=== PATIENT | male | born 1935 | race Caucasian/White ===

== ENCOUNTER 2021-01-19 06:00 | Outpatient (RCR) | payer OTHER, SELFPAY | END 2021-01-20 23:59 | disposition home or self-care (01) | LOC: AST 06:00 | PROVIDERS: PCP Nurse Practitioner; Referring Provider Family Medicine; Visit Provider Family Medicine | DX: F13.19 Sedative, hypnotic or anxiolytic abuse with unspecified sedative, hypnotic or anxiolytic-induced disorder (principal) | CPT/HCPCS: 92610 ==

== ENCOUNTER 2021-01-25 08:53 | Outpatient (CLI) | payer OTHER, SELFPAY ==
--- NOTE | 2021-01-25 | FL_ITS ---
WS: [id number] FL barium swallow modifd 81162 REASON FOR EXAM: Other dysphagia FLUOROSCOPY TIME: 2.9 minutes FINDINGS: The swallowing of barium of varying consistencies was evaluated and recorded fluoroscopically. A deta iled report of the analysis of the swallowing will be rendered by the speech therapy department. There appears to be abnormal motility and possible relative functional or intrinsic obstruction of th e distal esophagus and a formal esophagram is recommended for further evaluation. FL/FL barium swallow modifd 93178 IMPRESSION: Modified barium swallow as above. Recommendation esophagram as above.
== END 2021-01-25 08:54 | disposition home or self-care (01) ==
LOC: RAD 08:57
PROVIDERS: PCP Nurse Practitioner; Visit Provider Family Medicine
DX: R13.19 Other dysphagia (principal)
CPT/HCPCS: 74230; 92611

== ENCOUNTER 2021-02-08 09:00 | Emergency (ER) | payer OTHER, SELFPAY ==
[2021-02-08 10:04] VITALS: BP 141/85; PULSE 103; RESP 20; TEMP 36.9; O2SAT 97; BMI 24.0
--- NOTE | 2021-02-08 11:02 | CT_ITS ---
WS: [id number] CT ABDOMEN PELVIS TECHNIQUE: Contrast-enhanced CT of the abdomen and pelvis with coronal and sagittal reformatted image s. CLINICAL INFORMATION: abd pain COMPARISON: None. DLP: 1033.[address] scans at [facility] use at least one of these dose optimization techniques: automated e xposure control; mA and/or kV adjustment per patient size (includes targeted exams where dose is matc hed to clinical indication); or iterative reconstruction. FINDINGS: Marked diffuse soft tissue thickening involving the distal thoracic esophagus extending to the GE junction suspicious for neoplasm. Associated luminal narrowing. Retrocrural and upper abdomina l lymphadenopathy. Additional marked bulky periaortic and retroperitoneal lymphadenopathy as well as aortocaval lymphadenopathy. Slight atelectasis in the lung bases. Diffuse fatty infiltration of the liver. Normal portal vein and splenic vein. Normal gallbladder. Normal spleen. Mild fatty atrophy of the pancreas. Vascular calcif ication. Enlarged calcified prostate measuring 4.5 CCM. Sigmoid diverticulosis. No evidence of high-grade smal l or large bowel obstruction. Normal appendix. Adrenal glands are normal. No hydronephrosis. Bilatera l renal cysts. Some lesions are too small to characterize. Small bladder cystocele. Moderate spondylitic changes lumbar spine. CT/CT abdomen pelvis w con* [id number] IMPRESSION: 1. Diffuse marked soft tissue thickening involving the distal esophagus suspic ious for neoplasm with luminal narrowing. Recommend Further evaluation with end oscopy. This extends to involve the GE junction. 2. Marked retrocrural, periesophageal, and upper abdominal lymphadenopathy. In addition circumferential bulky retroperitoneal,aortocaval and periaortic lymph adenopathy suspicious for metastatic disease versus lymphoma. 3. Diffuse fatty infiltration of the liver. 4. Bilateral renal cysts. 5. Enlarged calcified prostate. Notified Arun Mock DO at 02/08/2021 1:16 PM.
--- NOTE | 2021-02-08 11:03 | ED_ITS ---
HPI - General Adult General: Chief complaint: General Medical Stated complaint: LOWER ABD PAIN:UNABLE TO EAT SOLID FOOD X 4 MO Time Seen by Provider: 02/08/21 10:56 History of Present Illness: HPI narrative: 85-year-old male presents emergency room complaining of left lower quadrant abdominal pain for the last 6 months a decreased appetite. He denies any nausea vomiting or diarrhea. Denies any medic easy melena hematemesis coffee-ground emesis. Is not had any fever sweats or chills.[facility] Sounds like he had an upper GI but we do not have access to those results. [facility] the [facility]. Nothing has significantly changed notes been going on since June of this year. He denies any fever sweats or chills is not had any vomiting at all with this. No previous abdominal surgeries. Onset (ago): month(s) (6) Location: abdomen Severity: mild Quality: aching Pain Consistency: intermittent Relieving factors: other (Fasting) Exacerbating factors: eating Associated symptoms: Reports decreased appetite, malaise, nausea and weakness; Deny chest pain, confusion, cough, diaphoresis, dyspnea, fevers/chills, he adache(s), rash, palpitations, seizures, short of breath, syncope or vomiting Treatments prior to arrival: none Review of Systems Const: Reports: change in appetite, change in weight and malaise; Denies: diaphoresis ENMT: Denies: throat pain, ear or mastoid pain, nasal discharge or nasal congestion Card: Denies: chest pain, palpitations or syncope Resp: Denies: dyspnea GI: Reports: nausea, dysphagia, heartburn, early satiety and GI cramping; Denies: vomiting, hematemesis, coffee ground emesis, hematochezia or melena : Denies: flank pain, dysuria, urinary frequency or urinary urgency Skin/Breast: Denies: rash Neuro: Denies: headache(s) or confusion PFS ED PFSH: Medical History (Updated 02/08/21 @ 13:45 by Arun Mock DO) Blind left eye since childhood Surgical History (Updated 01/12/21 @ 09:03 by PACO Garrett) No history of previous surgery Family History Other Hyperlipidemia Hypertension Denies family history of Diabetes Dementia Anesthesia complication Bleeding disorder Cancer Stroke Social History Smoking and tobacco status: former smoker Second hand smoke exposure: No Smoking risk assessment/counseling performed?: No Alcohol intake: never Desire information about alcohol rehabilitation?: No Counseling given: No Desire information about substance/drug rehabilitation?: No Counseling given: No Adopted: No Caregiver/support person: No Lives independently: Yes Household members: friend(s) Housing: House Marital status: Single service: Yes branch: [employer] Current occupational status: retired Current occupational exposures/hazards: No Pets and animals: Yes Pets & animals: dog(s) History of recent travel: No Current gender identity: Male Physical Exam Const: COMMON NORMALS: no acute distress GENERAL APPEARANCE: cooperative and comfortable ORIENTATION/CONSCIOUSNESS: Yes awake, Yes oriented to person, Yes oriented to place and Yes oriented to time HENMT: COMMON NORMALS: normocephalic, atraumatic and hearing grossly normal bilaterally HEAD & SCALP: normocephalic and atraumatic Neck/C-Spine: COMMON NORMALS: no JVD Resp: COMMON NORMALS: normal respiratory effort, No retractions, No use of accessory muscles and clear to auscultation bilaterally AUSCULTATION: clear to auscultation bilaterally Cardio: COMMON NORMALS: no JVD, regular rate, regular rhythm and No murmurs present (Cardio) RATE: regular rate RHYTHM: regular rhythm GI: COMMON NORMALS: Soft to palpation and No hepatosplenomegaly present AUSCULTATION: Yes normoactive bowel sounds PALPATION: Yes Soft to palpation, No Tenderness to palpation present (GI), No Guarding due to palpation present (GI) and Yes No hepatosplenomegaly present Extremity: COMMON NORMALS: normal to inspection, capillary refill normal, no clubbing, cyanosis or edema, no calf tenderness and no pedal edema Neuro: SENSORIUM/ORIENTATION: Yes oriented to person, Yes oriented to place and Yes oriented to time Skin: COMMON NORMALS: no rashes or lesions noted GENERAL SKIN EXAM: no rashes or lesions noted Course Vital Signs: Vital signs: Vital Signs Temperature 98.1 F 02/08/21 11:52 Pulse Rate 81 02/08/21 14:09 Respiratory Rate 19 H 02/08/21 14:09 Blood Pressure 141/78 02/08/21 14:09 Pulse Oximetry 96 02/08/21 14:09 MDM - General Adult MDM Narrative: Medical decision making narrative: Labs and imaging reviewed, very concerning for esophageal cancer and possibly lymphoma. Discussed with the patient and his family the findings are concerning for possible cancer but until there is a biopsy done we cannot be certain. Discussed with the radiologist as well. He recommends that the easiest route will likely be a EGD he suspects based on CT findings this could be biopsied at the distal esophagus. We will make arrangements for him to see Dr. Chacon. Return to the emergency room if he has further problems. Patient given Zofran and Protonix. Also start a low-dose dexamethasone and attempt to increase his appetite decrease swelling distal esop hageal junction. Advised him if it is irritating to just stop it. Lab Data: Labs: Lab Results 02/08/21 02/08/21 02/08/21 11:45 11:45 11:45 WBC 14.6 10^3/uL H 10 ^3/uL (4.0-10.0) RBC 4.74 10^6/uL 10^6 /uL (4.1-5.3) Hgb 14.7 g/dL g/dL (11.7-16.6) Hct 42.5 % % (42.0-52.0) MCV 89.7 fl fl (80-94) MCH 31.0 pg pg (28.0-34.0) MCHC 34.6 g/dL g/dL (30.0-36.0) RDW 12.7 % % (12.1-15.1) Plt Count 341 10^3/cmm 10^3 /cmm (130-400) MPV 9.5 fL fL (7.4-10.4) Neut % (Auto) 81.5 % % Lymph % (Auto) 8.4 % % [place] % (Auto) 7.3 % % Eos % (Auto) 1.9 % % Baso % (Auto) 0.6 % % Neut # (Auto) 11.89 10^3/uL H 1 0^3/uL (1.8-7.7) Lymph # (Auto) 1.2 10^3/uL 10^3/ uL (0.8-4.8) [place] # (Auto) 1.1 10^3/uL H 10^ 3/uL (0.2-0.9) Eos # (Auto) 0.3 10^3/uL 10^3/ uL (0.0-0.8) Baso # (Auto) 0.1 10^3/uL 10^3/ uL (0.0-0.1) Nucleated RBC % (a uto) 0 % % Nucleated RBCs # 0.0 /100WBC /100W BC Sodium 135 mmol/L L mmol /L (136-145) Potassium 4.3 mmol/L mmol/L (3.5-5.1) Chloride 96 mmol/L L mmol/ L (98-107) Carbon Dioxide 27 mmol/L mmol/L (22-29) Anion Gap 16.3 (5-19) BUN 16 mg/dL mg/dL (8-23) Creatinine 0.7 mg/dL mg/dL (0.7-1.2) GFR Calculation Not Reportable Glucose 94 mg/dL mg/dL (65-115) Calculated Osmolal ity 281 mOsm/kg L mOs m/kg (285-295) Calcium 9.3 mg/dL mg/dL (8.5-10.5) Total Bilirubin 0.6 mg/dL mg/dL (0.15-1.2) AST 17 U/L U/L (0-40) ALT 10 U/L U/L (0-41) Alkaline Phosphata se 101 IU/L IU/L (40-130) Total Protein 7.5 g/dL g/dL (6.6-8.7) Albumin 3.6 g/dL g/dL (3.5-5.2) Globulin 3.9 g/dL g/dL (1.3-4.6) Urine Color Yellow (Yellow) Urine Appearance Cloudy (CLEAR) Urine pH 5 (5-7) Ur Specific Gravit y 1.020 (1.005-1.030) Urine Protein Trace (Negative) Urine Glucose (UA) Norm (Normal) Urine Ketones 1+ H (Negative) Urine Blood Neg (Negative) Urine Nitrate Negative (Negative) Urine Bilirubin Neg (Negative) Urine Urobilinogen 1 mg/dL H mg/dL (Negative) Ur Leukocyte Diane ase 2+ H (Negative) Urine RBC 0-4 /hpf H /hpf (0-2) Urine WBC 10-15 /hpf H /hpf (0-5) Ur Squamous Epith Cells 5-10 /hpf H /hpf (0-5) Amorphous Sediment 1+ /hpf /hpf Urine Bacteria 2+ /hpf H /hpf (NONE) Urine Mucus 3+ /hpf /hpf Discharge Plan Discharge Patient Disposition: Home Clinical Impression: Esophageal mass Condition: Stable Prescriptions: New Zofran 4 mg tablet 4 mg PO Q6H PRN (Reason: nausea and vomiting) Qty: 15 RF: 0 dexamethasone 6 mg tablet 2 mg PO DAILY Qty: 15 RF: 0 Protonix 40 mg tablet,delayed release (DR/EC) 40 mg PO DAILY 56 Days RF: 0 No Action carboxymethylcellulose sodium [Lubricant Eye Drops] 0.5 % drops 2 drp ophthalmic (eye) BID Qty: 15 RF: 0 chlorhexidine gluconate [Peridex] 0.12 % mouthwash 15 ml buccal BID Qty: 473 RF: 2 Discharge Orders: Discharge ED (Routine); Ordered 02/08/21 Ordered By: Arun Mock Referrals: [facility], [facility] [Nurse Practitioner] - Discharge Diet: Soft Mechanical Discharge Activity: Resume usual activity Patient Instructions: Soft Diet (ED), Opioid Safety Activity Restrictions/Additional Instructions: transportation dispatch manager will make arrangements for you to follow-up with general surgery for an EGD to get a biopsy of the area of concern. Return if you have further problems. Coding Level of Care Code ED Critical Power Install Technician for Kelli Wilson
[2021-02-08 11:52] VITALS: BP 145/88; PULSE 83; RESP 19; TEMP 36.7
[2021-02-08 12:14] LABS: Basophils # 0.1 10^3/uL (0.0-0.1); Basophils % 0.6 %; Eosinophils # 0.3 10^3/uL (0.0-0.8); Eosinophils % 1.9 %; Hematocrit 42.5 % (42.0-52.0); Hemoglobin 14.7 g/dL (11.7-16.6); Lymphocytes # 1.2 10^3/uL (0.8-4.8); Lymphocytes % 8.4 %; Mean Corpuscular HGB Conc 34.6 g/dL (30.0-36.0); Mean Corpuscular Volume 89.7 fl (80-94); Mean Platelet Volume 9.5 fL (7.4-10.4); Monocytes # 1.1 10^3/uL (0.2-0.9); Monocytes % 7.3 %; Neutrophils # 11.89 10^3/uL (1.8-7.7); Neutrophils % 81.5 %; Nucleated Red Blood Cells % 0 %; Platelet Count 341 10^3/cmm (130-400); Red Blood Count 4.74 10^6/uL (4.1-5.3); Red Cell Distribution Width 12.7 % (12.1-15.1); White Blood Count 14.6 10^3/uL (4.0-10.0)
[2021-02-08 12:22] LABS: Alanine Aminotransferase 10 U/L (0-41); Albumin Level 3.6 g/dL (3.5-5.2); Alkaline Phosphatase 101 IU/L (40-130); Anion Gap 16.3 (5-19); Aspartate Amino Transferase 17 U/L (0-40); Blood Urea Nitrogen 16 mg/dL (8-23); Calcium 9.3 mg/dL (8.5-10.5); Carbon Dioxide 27 mmol/L (22-29); Chloride 96 mmol/L (98-107); Globulin 3.9 g/dL (1.3-4.6); Glucose 94 mg/dL (65-115); Osmolality Calculated 281 mOsm/kg (285-295); Potassium 4.3 mmol/L (3.5-5.1); Sodium 135 mmol/L (136-145); Total Bilirubin 0.6 mg/dL (0.15-1.2); Total Protein 7.5 g/dL (6.6-8.7)
[2021-02-08 12:30] LABS: Urine Appearance Cloudy (CLEAR); Urine Color Yellow (Yellow); pH Urine 5 (5-7)
[2021-02-08 12:31] LABS: Add Urine Microscopic? YES; Bilirubin Urine Neg (Negative); Blood Urine Neg (Negative); Glucose Urine UA Norm (Normal); Ketones Urine 1+ (Negative); Leukocyte Esterase Urine 2+ (Negative); Nitrate Urine Negative (Negative); Protein Urine Trace (Negative); RBC Urine 0-4 /hpf (0-2); Urobilinogen Urine 1 mg/dL (Negative)
[2021-02-08 12:32] LABS: Add Urine Culture? Yes; Amorphous Sediment Urine 1+ /hpf; Bacteria Urine 2+ /hpf; Mucus Urine 3+ /hpf
[2021-02-08] MEDS: iohexol 300 mg/mL 100 mL Btl IV (12:33)
[2021-02-08 14:09] VITALS: BP 141/78; PULSE 81; RESP 19; O2SAT 96
--- NOTE | 2021-02-08 14:10 | PC.NURSE ---
upon dc pt iv is removed with catheter intact. pt denies any further needs at this time.
--- NOTE | 2021-02-09 15:49 | DCPLANNER ---
manager of it had message to schedule a follow up appointment for patient with general surgery. manager of it emailed patients information to Fe Gray and Julianne at [facility] General Surgery / ENT clinic. Patients information will be printed and reviewed. Clinic will call patient with appointment information. Patient has [facility] insurance, manager of case management emailed patients information over a secured email to [facility] with [facility], so that the authorization process could be started.
--- NOTE | 2021-03-04 08:03 | DCPLANNER ---
Patient had a follow up appointment scheduled for 02.17.21 with general surgery - patient did attend appointment.
== END 2021-02-08 14:13 | disposition home or self-care (01) ==
PROVIDERS: Emergency Provider Family Medicine; PCP Family Medicine
DX: K22.9 Disease of esophagus, unspecified (principal); Z87.891 Personal history of nicotine dependence
CPT/HCPCS: 74177; 80053; 81001; 85025; 87086; 99283; Q9967

== ENCOUNTER 2021-02-23 08:18 | Day surgery (SDC) | payer OTHER, SELFPAY ==
[2021-02-18 14:47] VITALS: BMI 23.1
--- NOTE | 2021-02-23 09:05 | P.ANESASSM_ITS ---
Pre-Anesthetic Assessment Pre-Anesthetic Assessment: Height/Weight: Height 1.63 m Weight 61.235 kg Preop Diagnosis: Dysphagia Proposed Procedure: Operation Date: 02/23/21 10:00 Proposed Procedures p EGD 62038 R13.10(Not Applicable) - Carlito Ambrosio MD Familial anesthetic complications: No hx of anesthesia before Last intake: > 8 hrs Social: Social History: No alcohol and No tobacco Exam: Pre-Anes Outpt Exam: alert, oriented x 3, clear to auscultation bilaterally and regular rate & rhythm Airway: MP: 2 Dentition: Other (missing) GI: Comments: fatigue - only able to take ensure since october, 40 lbs lost dysphagia Anesthetic Plan: ASA status: 3 Anesthesia: MAC Risk of > 500 ml blood loss (7ml/kg in children): No PFSH Anesthesia PFSH: Medical History Blind left eye since childhood Surgical History No history of previous surgery Family History Other Hyperlipidemia Hypertension Denies family history of Diabetes Dementia Anesthesia complication Bleeding disorder Cancer Stroke Social History Smoking and tobacco status: never smoked Second hand smoke exposure: No Smoking risk assessment/counseling performed?: No Alcohol intake: never Desire information about alcohol rehabilitation?: No Counseling given: No Desire information about substance/drug rehabilitation?: No Counseling given: No Adopted: No Caregiver/support person: No Lives independently: Yes Household members: friend(s) Housing: House Marital status: Single service: Yes branch: [employer] Current occupational status: retired Current occupational exposures/hazards: No Pets and animals: Yes Pets & animals: dog(s) History of recent travel: No Current gender identity: Male Data Anesthesia Cardiac Studies: No Data to Display
--- NOTE | 2021-02-23 09:34 | W.PM.OPSUD ---
Surgery/Procedure H&P Update DATE OF PROCEDURE: February 23, 2021 DATE H&P PERFORMED: 02/17/21 H&P UPDATE INFORMATION: I have reviewed H&P completed within last 30 days, I have examined patient prior to procedure and No changes to prior documentation PREOP DIAGNOSIS: Dysphagia PRIMARY INDICATION FOR PROCEDURE: The same PLANNED PROCEDURE: Operation Date: 02/23/21 10:00 Proposed Procedures p EGD 51121 R13.10(Not Applicable) - Carlito Ambrosio MD
[2021-02-23 09:40] VITALS: BP 120/80; PULSE 96; RESP 18; TEMP 36.4; O2SAT 97
[2021-02-23] MEDS: sodium chloride 0.9% 1,000 ML 30 ML IV (09:54)
[2021-02-23 10:29] VITALS: BP 99/60; PULSE 85; RESP 16; TEMP 36.1; O2SAT 96
[2021-02-23 10:39] VITALS: BP 113/65; PULSE 80; RESP 18; O2SAT 95
--- NOTE | 2021-02-23 14:31 | ANE.PACU2 ---
Inpatient post-anesthesia follow up: Airway intact: Yes Vital signs: Temperature 97.0 F Pulse Rate 80 Respiratory Rate 18 Blood Pressure 113/65 Pulse Oximetry 95 Oxygen Delivery Me thod Room Air Oxygen Flow Rate Fraction of Inspir ed Oxygen Hydration adequate: Yes Nausea and vomiting: No Pain level: 2 Mental status: Baseline
[2021-02-28 09:13] LABS: HER2 FISH/IHC (Non-Gastric) See Report
[2021-03-07 07:42] LABS: PD-L1 (Clone 22C3) by IHC BBPL See Report
== END 2021-02-23 10:59 | disposition home or self-care (01) ==
PROVIDERS: PCP Family Medicine; Visit Provider Surgery
PROC: 0DJ08ZZ Inspection of Upper Intestinal Tract, Via Natural or Artificial Opening Endoscopic (ICD-10-PCS; CPT 43235; principal; 2021-02-23 10:00)
DX: R13.10 Dysphagia, unspecified (principal); C15.5 Malignant neoplasm of lower third of esophagus; K22.89 Other specified disease of esophagus; R59.0 Localized enlarged lymph nodes; K76.0 Fatty (change of) liver, not elsewhere classified; N28.1 Cyst of kidney, acquired; N40.0 Benign prostatic hyperplasia without lower urinary tract symptoms; I10 Essential (primary) hypertension; E78.5 Hyperlipidemia, unspecified
CPT/HCPCS: 43239; 88104; 88305; 88342; 96360; J2704; J7030

== ENCOUNTER 2021-03-14 08:13 | Outpatient (CLI) | payer OTHER, SELFPAY ==
--- NOTE | 2021-03-14 10:03 | N.ONRAD NP_ITS ---
Radiation Oncology Consultation Patient Name: Keegan Funk Date of : 1935 Date of Service: 03/14/2021 Attending Physician: Amado Armas M.D. Keegan Funk was seen in consultation this morning at the request of Carlito Stein M.D. for consideration of esophageal radiotherapy for the management of a recently diagnosed distal esophageal carcinoma. He initially was evaluated at the [facility] Emergency Department in January for dyspepsia and dysphagia associated with weight loss. A thoracoabdominopelvic CT scan described diffuse soft tissue thickening of the distal esophagus extending to the gastroesophageal junction and lymphadenopathy (aortocaval, periaortic, upper abdominal, retrocrural, and retroperitoneal). An esophagoscopy was performed by Carlito Stein M.D. on February 23, 2021. A partially obstructing mass was present 30 cm from the central incisors. A biopsy of the mass Keegan Funk was seen in consultation this morning at the request of Carlito Stein M.D. for consideration of esophageal radiotherapy for the management of a recently diagnosed distal esophageal carcinoma. He initially was evaluated at the [facility] Emergency Department in January for dyspepsia and dysphagia associated with weight loss. A thoracoabdominopelvic CT scan described diffuse soft tissue thickening of the distal esophagus extending to the gastroesophageal junction and lymphadenopathy (aortocaval, periaortic, upper abdominal, retrocrural, and retroperitoneal). An esophagoscopy was performed by Carlito Stein M.D. on February 23, 2021. A partially obstructing mass was present 30 cm from the central incisors. 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 A PET CT has been scheduled. The patient was evaluated concerning neoadjuvant chemoradiotherapy. 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 The recommendations are based upon the CROSS study which compared surgery alone to preoperative chemoradiotherapy significantly improved overall survival (5-year 47% versus 34%) and disease-free survival compared to surgery alone in patients with resectable esophageal or esophago-gastric junction cancers. Long-term results of this trial confirmed significant improvement in median overall survival (43 months versus 27 months for patients with adenocarcinoma). The patient will be evaluated for esophageal stent placement prior to definitive management. I would recommend a 5-week course of radiotherapy assuming the PET scan does not confirm metastatic disease. Prior to beginning treatment, a computed tomographic radiotherapy planning scan with contrast in the treatment position will be acquired and co-registered to the patient's PET CT scan to identify the gross tumor volume. The potential toxicities of radiation treatment have been reviewed. The patient has verbalized understanding and would like to proceed as advised. The patient???s medical treatment plan was discussed with Carlito Stein M.D. Signed by: Dr. Amado Armas 03/14/2021 10:01:55 AM
== END 2021-03-14 08:14 | disposition home or self-care (01) ==
PROVIDERS: PCP Family Medicine; Visit Provider Radiology Radiation Oncology
DX: C15.5 Malignant neoplasm of lower third of esophagus (principal); R10.13 Epigastric pain; R13.10 Dysphagia, unspecified; R63.4 Abnormal weight loss; R59.0 Localized enlarged lymph nodes; Z79.899 Other long term (current) drug therapy
CPT/HCPCS: 99205

== ENCOUNTER 2021-03-14 10:01 | Emergency (ER) | payer OTHER, SELFPAY ==
[2021-03-14 10:09] VITALS: BP 93/61; PULSE 96; RESP 15; TEMP 36.4; O2SAT 97; BMI 21.2
--- NOTE | 2021-03-14 10:27 | W.ED.ABDPA2 ---
HPI - Abdominal Pain General: Chief Complaint: Abdominal Pain Stated Complaint: Pain, unable to eat, sent per doctor History of Present Illness: MD elicited complaint: abdominal pain PFSH ED PFSH: Medical History Blind left eye since childhood Surgical History No history of previous surgery Family History Other Hyperlipidemia Hypertension Denies family history of Diabetes Dementia Anesthesia complication Bleeding disorder Cancer Stroke Social History Second hand smoke exposure: No Smoking risk assessment/counseling performed?: No Alcohol intake: never Desire information about alcohol rehabilitation?: No Counseling given: No Desire information about substance/drug rehabilitation?: No Counseling given: No Adopted: No Caregiver/support person: No Lives independently: Yes Household members: friend(s) Housing: House Marital status: Single service: Yes branch: [employer] Current occupational status: retired Current occupational exposures/hazards: No Pets and animals: Yes Pets & animals: dog(s) History of recent travel: No Current gender identity: Male Course Vital Signs: Vital signs: Vital Signs Temperature 97.6 F 03/14/21 10:09 Pulse Rate 96 03/14/21 10:09 Respiratory Rate 15 03/14/21 10:09 Blood Pressure 93/61 03/14/21 10:09 Pulse Oximetry 97 03/14/21 10:09 Discharge Plan Discharge Prescriptions: No Action hydrocodone-acetaminophen 5-325 mg tablet 1 tab PO Q6H PRN (Reason: pain) 7 Days Qty: 28 RF: 0 acetaminophen 500 mg Tablet 500 mg PO Q6H PRN (Reason: Pain) RF: 0 Coding Level of Care Code ED Taker Off Braker Machine for Kelli Wilson
[2021-03-14 11:24] VITALS: BP 106/69; PULSE 89; RESP 19; TEMP 36.6; O2SAT 97
[2021-03-14] MEDS: sodium chloride 0.9% 500 ML IV (11:49)
[2021-03-14 12:08] LABS: Basophils % 0.2 %; Eosinophils # 0.1 10^3/uL (0.0-0.8); Eosinophils % 0.4 %; Hematocrit 39.1 % (42.0-52.0); Hemoglobin 12.7 g/dL (11.7-16.6); Lymphocytes # 0.7 10^3/uL (0.8-4.8); Lymphocytes % 4.2 %; Mean Corpuscular HGB Conc 32.5 g/dL (30.0-36.0); Mean Corpuscular Hemoglobin 29.8 pg (28.0-34.0); Mean Corpuscular Volume 91.8 fl (80-94); Mean Platelet Volume 10.2 fL (7.4-10.4); Monocytes # 0.7 10^3/uL (0.2-0.9); Monocytes % 4.4 %; Neutrophils # 14.99 10^3/uL (1.8-7.7); Neutrophils % 90.4 %; Nucleated Red Blood Cells % 0 %; Platelet Count 246 10^3/cmm (130-400); Red Blood Count 4.26 10^6/uL (4.1-5.3); Red Cell Distribution Width 14.9 % (12.1-15.1); White Blood Count 16.6 10^3/uL (4.0-10.0)
[2021-03-14 12:24] VITALS: BP 117/72; PULSE 81; RESP 17; O2SAT 99
--- NOTE | 2021-03-14 12:28 | CT_ITS ---
WS: [id number] CT ABDOMEN AND PELVIS WITH CONTRAST HISTORY: Evaluate for stomach cancer TECHNIQUE: Imaging performed of the abdomen and pelvis with IV contrast. Single phase imaging of the abdomen. Coronal and sagittal reformats are submitted. All CT scans at [facility] use at [address] one of these dose optimization techniques: automated exposure control; mA and/or kV adjustment per patient size (includes targeted exams where dose is matched to clinical indication); or iterative re construction. IV CONTRAST: Visipaque 320; 95 mL IV. Oral contrast: No DLP: 832.71 mGy.cm COMPARISON: 02/08/2021 Lower thorax: Tiny nodular densities at the lung bases are new. Early metastatic sites are not exclud ed. There is a small layering LEFT pleural effusion. Heart is normal size. Small pericardial effusion . There is marked diffuse esophageal wall thickening. This was previously described on 02/08/2021 wit h progression. There is significant narrowing of the lumen wall measuring up to 2 cm of the esophagus . This abnormal soft tissue mass extends into the GE junction and fundus of the stomach. Liver/biliary system: Normal size with no intrahepatic dilatation. Gallbladder: Mildly hydropic gallbladder. No adjacent inflammation or wall thickening. Pancreas: Marked atrophy of the pancreas. Significant progression of soft tissue surrounding the panc reas with encasement by confluent soft tissue low attenuation masses consistent with adenopathy. Inse parable from the pancreas with significant progression since the prior study. There probably is is al so invasion into the pancreas. Spleen: Normal size spleen. No mass or infarct. Adrenal glands: Normal RIGHT adrenal gland. Abnormal LEFT adrenal gland. Confluent soft tissue metast atic nodules which are inseparable from the pancreas extending to also involve the adrenal gland. Thi s may be encasement from external metastatic sites or metastatic to the adrenal gland. Right kidney: Small cyst. No obstruction. Left kidney: Small cysts with no obstruction. Aorta: Moderate atherosclerosis aorta. Lymphadenopathy: Extensive significant progression of lymphadenopathy and/or metastatic deposits thro ughout the abdomen and pelvis since the prior examination. Distal paraesophageal and retrocrural lymp hadenopathy. There is extensive adenopathy throughout the mesentery and extending into the retroperit oneum at multiple levels. Circumferential adenopathy encasing the aorta at the level of the renal art eries. Aortocaval, periaortic and retrocaval lymph nodes and retrocrural lymph nodes. Numerous mesent judson lymph nodes. Free fluid: None. GI tract: No small bowel obstruction. Mild increased amount of air fecal retention throughout the col on. There are numerous diverticula in the descending colon with no obstruction. Abdominal wall: Unremarkable abdominal wall. No hernia. Pelvis: Well-distended urinary bladder. Small calcifications within the dependent urinary bladder may be from a recently passed ureteral calcification. New since 02/08/2021. Extensive calcifications wit hin the prostate gland. Patent inguinal canals. Bones: No osteoblastic or osteolytic disease. CT/CT abdomen pelvis w con* [id number] IMPRESSION: 1. Moderate progression of soft tissue thickening surrounding the distal esoph guadalupe extending into the fundus of the stomach highly suspicious for neoplastic disease. 2. Significant progression of adenopathy and/or mesenteric deposits throughout the abdomen and retroperitoneal. Progression of retrocrural, mesenteric and re troperitoneal adenopathy. 3. Adenopathy has significantly progressed and extends into the pancreas and t he LEFT adrenal gland. 4. Small layering LEFT pleural effusion and possible very small metastatic nod ules at the lung bases. 5. New calcification in the dependent urinary bladder may be from a recently p assed ureteral calcification.
[2021-03-14 12:41] VITALS: RESP 20; O2SAT 97
[2021-03-14] MEDS: morphine 4 mg/mL SDV 1 mL 2 MG IVP (12:41)
--- NOTE | 2021-03-14 12:43 | ED_ITS ---
HPI - General Adult General: Chief complaint: Abdominal Pain Stated complaint: Pain, unable to eat, sent per doctor Time Seen by Provider: 03/14/21 11:04 History of Present Illness: HPI narrative: Patient is an 85-year-old male with history of esophageal cancer presenting to the emergency room with concerns for weight loss and inability tolerate p.o. Patient was deemed not a candidate for GJ tube placement by Dr. Ambrosio given the fact that patient would not be able to undergo EGD evaluation. Patient denies any nausea or vomiting, has not been able to tolerate p.o. Patient was referred her by Dr. Ambrosio for esophageal stent placement for palliative treatments. She has had 25 pounds of weight loss in the last month. Denies any other complaints when diarrhea, melena or/hematochezia, urinary complaints, chest pain, shortness breath, palpitation, fever or chills. Onset: chronic Duration:ongoing Location: home Severity:moderate/severe Review of Systems Narrative: Constitutional: No fever, no chills. +thin, cachetic HEENT: No vision changes CV: No chest pain, no palpitations PULM: no cough, no dyspnea. GI: No abdominal pain, no N/V/D. +weight loss : No dysuria MSKEL: No muscle pain SKIN: No new rashes, no lesions. NEURO: No headache, no focal weakness. HEME: No visible bruises PSYCH: Normal mood PFSH ED PFSH: Medical History Blind left eye since childhood Surgical History No history of previous surgery Family History Other Hyperlipidemia Hypertension Denies family history of Diabetes Dementia Anesthesia complication Bleeding disorder Cancer Stroke Social History Second hand smoke exposure: No Smoking risk assessment/counseling performed?: No Alcohol intake: never Desire information about alcohol rehabilitation?: No Counseling given: No Desire information about substance/drug rehabilitation?: No Counseling given: No Adopted: No Caregiver/support person: No Lives independently: Yes Household members: friend(s) Housing: House Marital status: Single service: Yes branch: [employer] Current occupational status: retired Current occupational exposures/hazards: No Pets and animals: Yes Pets & animals: dog(s) History of recent travel: No Current gender identity: Male Physical Exam Narrative: EXAM NARRATIVE: Head: Atraumatic Eyes: PERRL, conjunctiva without injection ENT: Mucous membrane moist NECK: Supple, ROM intact LUNGS: LCTAB, no crackles/rhonchi CV: RRR ABDOMEN: Soft, nofocal TTP. NO guarding rebound, guarding, rigidity. No CVA tenderness to percussion. Neg Stovall/Neg McBurney's point tenderness, no suprabupic tenderness to palpation. EXTREMITY: Normal ROM SKIN: No rash or erythema NEURO: Awake and alert, no focal motor deficits PSYCH: Normal mood and affect Course Vital Signs: Vital signs: Vital Signs Temperature 97.9 F 03/14/21 11:24 Pulse Rate 80 03/14/21 14:06 Respiratory Rate 16 03/14/21 14:06 Blood Pressure 107/63 03/14/21 14:06 Pulse Oximetry 96 03/14/21 14:06 MDM - General Adult MDM Narrative: Medical decision making narrative: Patient is a 85-year-old male with a history of extensive esophageal carcinoma presenting to the emergency room at the request of patient's surgeon Dr. Brown for esophageal stent placement. Patient is not deemed not a candidate for GJ tube given extensive cancer history and inability to pass EGD during prior evaluation. On exam, patient is thin cachectic looking male. Rest of exam within normal limit. He has a white count of 16.6, this is consistent with his baseline of 14.8 from prior evaluation on . At the present time, given need for esophageal stent, have discussed case with Dr. Ambrosio who recommended outpatient transfer as we do not provide this procedure in our facility. Case was discussed with Dr. Bills from [facility] general surgery who reports that there is no bed and patient is better suited for outpatient evaluation for stent placement next week. I discussed this extensively with patient and instructed patient to follow-up with his nozzle operator in the next 24 to 48 hours for reevaluation to evaluate for nutritional improvement while waiting for outpatient procedure by Dr. Bills. Disposition: Discharge. Patient counseled regarding diagnostic impression, treatment plan. Patient given ED strict return precautions to return for continuation, worsening, or development of new symptoms. Instructed to f/u w/ PCP, general surgeon, and oncologist regarding symptoms today. Patient verbalized understanding. Lab Data: Labs: Lab Results 03/14/21 03/14/21 11:47 12:35 WBC 16.6 10^3/uL H 10 ^3/uL (4.0-10.0) RBC 4.26 10^6/uL 10^6 /uL (4.1-5.3) Hgb 12.7 g/dL g/dL (11.7-16.6) Hct 39.1 % L % (42.0-52.0) MCV 91.8 fl fl (80-94) MCH 29.8 pg pg (28.0-34.0) MCHC 32.5 g/dL g/dL (30.0-36.0) RDW 14.9 % % (12.1-15.1) Plt Count 246 10^3/cmm 10^3 /cmm (130-400) MPV 10.2 fL fL (7.4-10.4) Neut % (Auto) 90.4 % % Lymph % (Auto) 4.2 % % Steele % (Auto) 4.4 % % Eos % (Auto) 0.4 % % Baso % (Auto) 0.2 % % Neut # (Auto) 14.99 10^3/uL H 1 0^3/uL (1.8-7.7) Lymph # (Auto) 0.7 10^3/uL L 10^ 3/uL (0.8-4.8) Steele # (Auto) 0.7 10^3/uL 10^3/ uL (0.2-0.9) Eos # (Auto) 0.1 10^3/uL 10^3/ uL (0.0-0.8) Baso # (Auto) 0.0 10^3/uL 10^3/ uL (0.0-0.1) Nucleated RBC % (a uto) 0 % % Nucleated RBCs # 0.0 /100WBC /100W BC Sodium 128 mmol/L L mmol /L (136-145) Potassium 4.0 mmol/L mmol/L (3.5-5.1) Chloride 89 mmol/L L mmol/ L (98-107) Carbon Dioxide 21 mmol/L L mmol/ L (22-29) Anion Gap 22.0 H (5-19) BUN 36 mg/dL H mg/dL (8-23) Creatinine 1.1 mg/dL mg/dL (0.7-1.2) GFR Calculation Not Reportable Glucose 78 mg/dL mg/dL (65-115) Calculated Osmolal ity 273 mOsm/kg L mOs m/kg (285-295) Calcium 8.8 mg/dL mg/dL (8.5-10.5) Total Bilirubin 0.7 mg/dL mg/dL (0.15-1.2) AST 14 U/L U/L (0-40) ALT 6 U/L U/L (0-41) Alkaline Phosphata se 90 IU/L IU/L (40-130) Total Protein 6.2 g/dL L g/dL (6.6-8.7) Albumin 2.9 g/dL L g/dL (3.5-5.2) Globulin 3.3 g/dL g/dL (1.3-4.6) Lipase 6 U/L L U/L (13-60) Imaging Data^: Other Imaging: Radiologist's impression: [address] [id number] Scan ReportSigned Patient: Keegan Funk #: [id number]: [id number]#:[id number]/Sex: 85 / MADM Date: 03/14/21Loc: ERRoom/Bed:Attending Dr: Ordering Provider/Ordering MD: Eben Meneses MD Date of Service: 03/14/21 Procedure(s): CT abdomen pelvis w con* [id number] Accession Number(s): [id number] Report Number: [id number] WS: [id number] CT ABDOMEN AND PELVIS WITH CONTRAST HISTORY: Evaluate for stomach cancer TECHNIQUE: Imaging performed of the abdomen and pelvis with IV contrast. Single phase imaging of the abdomen. Coronal and sagittal reformats are submitted. All CT scans at [facility] use at least one of these dose optimization techniques: automated exposure control; mA and/or kV adjustment per patient size (includes targeted exams where dose is matched to clinical indication); or iterative reconstruction. IV CONTRAST: Visipaque 320; 95 mL IV. Oral contrast: No DLP: 832.71 mGy.cm COMPARISON: 02/08/2021 Lower thorax: Tiny nodular densities at the lung bases are new. Early metastatic sites are not excluded. There is a small layering LEFT pleural effusion. Heart is normal size. Small pericardial effusion. There is marked diffuse esophageal wall thickening. This was previously described on 02/08/2021 with progression. There is significant narrowing of the lumen wall measuring up to 2 cm of the esophagus. This abnormal soft tissue mass extends into the GE junction and fundus of the stomach. Liver/biliary system: Normal size with no intrahepatic dilatation. Gallbladder: Mildly hydropic gallbladder. No adjacent inflammation or wall thickening. Pancreas: Marked atrophy of the pancreas. Significant progression of soft tissue surrounding the pancreas with encasement by confluent soft tissue low attenuation masses consistent with adenopathy. Inseparable from the pancreas with significant progression since the prior study. There probably is is also invasion into the pancreas. Spleen: Normal size spleen. No mass or infarct. Adrenal glands: Normal RIGHT adrenal gland. Abnormal LEFT adrenal gland. C onfluent soft tissue metastatic nodules which are inseparable from the pancreas extending to also involve the adrenal gland. This may be encasement from external metastatic sites or metastatic to the adrenal gland. Right kidney: Small cyst. No obstruction. Left kidney: Small cysts with no obstruction. Aorta: Moderate atherosclerosis aorta. Lymphadenopathy: Extensive significant progression of lymphadenopathy and/or metastatic deposits throughout the abdomen and pelvis since the prior examination. Distal paraesophageal and retrocrural lymphadenopathy. There is extensive adenopathy throughout the mesentery and extending into the retroperitoneum at multiple levels. Circumferential adenopathy encasing the aorta at the level of the renal arteries. Aortocaval, periaortic and retrocaval lymph nodes and retrocrural lymph nodes. Numerous mesenteric lymph nodes. Free fluid: None. GI tract: No small bowel obstruction. Mild increased amount of air fecal retention throughout the colon. There are numerous diverticula in the descending colon with no obstruction. Abdominal wall: Unremarkable abdominal wall. No hernia. Pelvis: Well-distended urinary bladder. Small calcifications within the depen dent urinary bladder may be from a recently passed ureteral calcification. New since 02/08/2021. Extensive calcifications within the prostate gland. Patent inguinal canals. Bones: No osteoblastic or osteolytic disease. CT/CT abdomen pelvis w con* [id number] IMPRESSION: 1. Moderate progression of soft tissue thickening surrounding the distal esophagus extending into the fundus of the stomach highly suspicious for neoplastic disease. 2. Significant progression of adenopathy and/or mesenteric deposits throughout the abdomen and retroperitoneal. Progression of retrocrural, mesenteric and retroperitoneal adenopathy. 3. Adenopathy has significantly progressed and extends into the pancreas and the LEFT adrenal gland. 4. Small layering LEFT pleural effusion and possible very small metastatic nodules at the lung bases. 5. New calcification in the dependent urinary bladder may be from a recently passed ureteral calcification. Dictated By:Teresita Holly DOSigned By:Teresita Holly DOSigned Date/Time:03/14/21 1351DD/ 1333 Discharge Plan Discharge Patient Disposition: Home Clinical Impression: Abnormal weight loss, Esophagus, carcinoma Condition: Stable Prescriptions: No Action hydrocodone-acetaminophen 5-325 mg tablet 1 tab PO Q6H PRN (Reason: pain) 7 Days Qty: 28 RF: 0 acetaminophen 500 mg Tablet 500 mg PO Q6H PRN (Reason: Pain) RF: 0 Discharge Orders: Discharge ED (Routine); Ordered 03/14/21 Ordered By: Eben Meneses Referrals: Stacy Kerr MD [Primary Care Provider] - Discharge Diet: Advance as tolerated Discharge Activity: Resume usual activity Patient Instructions: Dysphagia (ED) Activity Restrictions/Additional Instructions: Please call Dr. Prince at [phone] to schedule an appointment next week at [facility] for followup. Coding Level of Care Code ED Loan Manager for Kelli Wilson
[2021-03-14 13:09] LABS: Alanine Aminotransferase 6 U/L (0-41); Albumin Level 2.9 g/dL (3.5-5.2); Alkaline Phosphatase 90 IU/L (40-130); Aspartate Amino Transferase 14 U/L (0-40); Blood Urea Nitrogen 36 mg/dL (8-23); Calcium 8.8 mg/dL (8.5-10.5); Carbon Dioxide 21 mmol/L (22-29); Chloride 89 mmol/L (98-107); Globulin 3.3 g/dL (1.3-4.6); Glucose 78 mg/dL (65-115); Lipase 6 U/L (13-60); Osmolality Calculated 273 mOsm/kg (285-295); Sodium 128 mmol/L (136-145); Total Bilirubin 0.7 mg/dL (0.15-1.2); Total Protein 6.2 g/dL (6.6-8.7)
[2021-03-14] MEDS: iodixanol 320 mg/mL 100mL Btl IV (13:28)
[2021-03-14 14:06] VITALS: BP 107/63; PULSE 80; RESP 16; O2SAT 96
--- NOTE | 2021-03-14 14:07 | PC.NURSE ---
Failed to chart that the provider was notified that the patient is unable to urinate. When this nurse asked the provider about an in and out catheter, the provider said that was not necessary. Have attempted several times since, with no result. Provider aware.
[2021-03-14 15:03] VITALS: BP 116/75; PULSE 79; RESP 18; TEMP 36.7; O2SAT 97
--- NOTE | 2021-03-16 14:59 | DCPLANNER ---
Addendum entered by Sunshine Busby 03/16/21 15:02: blood bank manager spoke with patients friend, was told that patient does not want the referral to . Hospice is going to come in and start services for patient. Original Note: blood bank manager faxed patients records to the office of Dr. Prince, for review so that a follow up appointment could be scheduled.
== END 2021-03-14 15:05 | disposition home or self-care (01) ==
PROVIDERS: Physician Assistant; Emergency Provider Emergency Medicine; PCP Family Medicine
DX: C15.9 Malignant neoplasm of esophagus, unspecified (principal); R63.4 Abnormal weight loss
CPT/HCPCS: 74177; 80053; 83690; 85025; 96361; 96374; 99284; J2270; J7040; Q9967